=== PATIENT | male | born 1990 ===

== ENCOUNTER 2021-09-14 11:13 | Emergency (ER) | payer SELFPAY ==
[2021-09-14 13:26] VITALS: BP 120/73
--- NOTE | 2021-09-14 13:43 | Emergency Department Report ---
ED N/V/D HPI - General Chief complaint: Abdominal Pain Stated complaint: SEVERE STOMACH PAIN Time Seen by Provider: 09/14/21 13:31 Source: patient Mode of arrival: Ambulatory Limitations: No Limitations ED Review of Systems ROS: Stated complaint: SEVERE STOMACH PAIN Other details as noted in HPI ED Physical Exam - General Limitations: No Limitations ED Course Vital Signs 09/14/21 13:22 Temperature 97.8 F Pulse Rate 63 Blood Pressure 120/73 [Right] O2 Sat by Pulse 99 Oximetry Critical care attestation.: If time is entered above; I have spent that time in minutes in the direct care of this critically ill patient, excluding procedure time. ED Disposition Condition: Stable
== END 2021-09-14 14:33 | disposition home or self-care (01) ==
LOC: ED 11:13
DX: R10.9 Unspecified abdominal pain (principal)
CPT/HCPCS: 99282